=== PATIENT | female | born 1960 | race Caucasian/White ===

== ENCOUNTER 2017-11-05 12:45 | Outpatient (CLI) | payer BC ==
[~2017-11-05 12:45] MED LIST: CITA40TA22 PO; DICL50TA9 PO; ELA50 PO; HYDR10SY7 PO; IRON PO; LEVO125T PO; NORCO5 PO; TOPI100T11 PO
== END 2017-11-05 19:01 | disposition home or self-care (01) ==
LOC: SMA 12:45
PROVIDERS: ATTEND Family Medicine
DX: Z12.31 Encounter for screening mammogram for malignant neoplasm of breast (principal)
CPT/HCPCS: 77067

== ENCOUNTER 2018-11-24 10:48 | Outpatient (CLI) | payer BC ==
[~2018-11-24 10:48] MED LIST changes: +HYDR10SY11 PO; -HYDR10SY7 PO
== END 2018-11-24 18:00 | disposition home or self-care (01) ==
LOC: SMA 10:48
PROVIDERS: ATTEND Physician Assistant Medical
DX: Z12.31 Encounter for screening mammogram for malignant neoplasm of breast (principal)
CPT/HCPCS: 77067

== ENCOUNTER 2020-11-14 10:59 | Outpatient (CLI) | payer BC | END 2020-11-14 20:33 | disposition home or self-care (01) | LOC: SMA 10:59 | PROVIDERS: ATTEND Family Medicine | DX: Z12.31 Encounter for screening mammogram for malignant neoplasm of breast (principal) | CPT/HCPCS: 77067 ==

== ENCOUNTER 2022-11-01 22:20 | Emergency (ER) | payer BC ==
[~2022-11-01] VITALS: Ht 170.2 cm; Wt 61.2 kg
[~2022-11-01 22:20] MED LIST changes: +AMIT50TA4 PO; -ELA50 PO
--- NOTE | 2022-11-01 22:31 | NUR ---
Patient arrived to ED 7 for c/o chest pain since noon. Patient said she took imitrex today about a few hours ago. Patient at bedside and called nurse hotline earlier and was told to bring to er. Patient feels persistent chest pain at the moment. Vital signs stable. Dr. Copeland at bedside to MSE patient. Will continue to monitor.
[2022-11-01] MEDS ORDERED: ASPIRIN 81 MG TAB.CHEW PO ONE (22:45)
[2022-11-01 23:26] LABS: BASOPHILS # (AUTO) 0.1 K/uL (0.0-0.2); BASOPHILS % (AUTO) 0.8 % (0.0-2.0); EOSINOPHILS # (AUTO) 0.4 K/uL (0.0-0.4); EOSINOPHILS % (AUTO) 5.3 % (0.0-4.0); HEMATOCRIT 36.6 % (36-48); HEMOGLOBIN 12.2 g/dL (12.0-16.0); LYMPHOCYTES # (AUTO) 2.5 K/uL (1.0-5.5); LYMPHOCYTES % (AUTO) 36.2 % (20.5-51.5); MEAN CORPUSCULAR HEMOGLOBIN 30 pg (27-31); MEAN CORPUSCULAR HGB CONC 33 % (32-36); MEAN CORPUSCULAR VOLUME 90 fL (79.0-98.0); MONOCYTES # (AUTO) 0.9 K/uL (0.0-1.0); MONOCYTES % (AUTO) 12.2 % (1.7-9.3); NEUTROPHILS # (AUTO) 3.2 K/uL (1.8-7.7); NEUTROPHILS % (AUTO) 45.5 % (40.0-70.0); PLATELET COUNT (AUTO) 205 K/uL (130-430); RED BLOOD CELL COUNT(AUTO) 4.07 MIL/uL (4.2-6.2); RED CELL DISTRIBUTION WIDTH 14.1 % (9.0-15.0)
[2022-11-01 23:28] LABS: ANION GAP 7 (5-15); CALCIUM 8.1 mg/dL (8.4-11.0); CHLORIDE 106 mmol/L (98-107); CREATININE 1.11 mg/dL (0.55-1.30); GFR AFRICAN AMERICAN 65 mL/min (>90); GLUCOSE 113 mg/dL (70-99); UREA NITROGEN, BLOOD 16 mg/dL (8-21)
[2022-11-01 23:35] LABS: ALANINE AMINOTRANSFERASE 23 U/L (12-78); ALBUMIN 3.2 g/dL (3.4-4.8); ASPARTATE AMINOTRANSFERASE 19 U/L (10-37); TOTAL BILIRUBIN 0.2 mg/dL (0.0-1.0)
[2022-11-01 23:42] VITALS: BP_SYST 124
--- NOTE | 2022-11-01 23:48 | NUR ---
Patient resting with at bedside.
[2022-11-02] MEDS ORDERED: KETOROLAC TROMETHAMINE 60 MG/2 ML VIAL IM ONE
[2022-11-02] MEDS ORDERED: IBUP-1969 PO (02:11)
[2022-11-02 02:31] VITALS: BP_SYST 136
--- NOTE | 2022-11-02 02:33 | NUR ---
Patient given written and verbal discharge instructions and verbalizes understanding. ER MD discussed with patient the results and treatment provided. Patient in stable condition. ID arm band removed. Rx of ibuprofen given. Patient educated on pain management and to follow up with PMD. Pain Scale . Opportunity for questions provided and answered. Medication side effect fact sheet provided.
== END 2022-11-02 02:31 | disposition home or self-care (01) ==
LOC: SED 22:20
DX: R07.9 Chest pain, unspecified (principal); Z79.899 Other long term (current) drug therapy
CPT/HCPCS: 99285; 71045; 80053; 85025; 84484; 36415; 93005; 96372; J1885

== ENCOUNTER 2022-12-10 11:20 | Emergency (ER) | payer BC ==
[~2022-12-10] VITALS: Ht 165.1 cm; Wt 68.9 kg
[~2022-12-10 11:20] MED LIST changes: +IBUP-1969 PO
[2022-12-10 12:00] VITALS: BP_SYST 156; PULSE 82; RESP 18; TEMP 98; O2SAT 98
[2022-12-10 13:41] VITALS: BP_SYST 142; PULSE 74; RESP 16; TEMP 97.3; O2SAT 97
== END 2022-12-10 13:42 | disposition home or self-care (01) ==
LOC: SED 11:20
DX: S06.0X0A Concussion without loss of consciousness, initial encounter (principal); Z79.899 Other long term (current) drug therapy; W18.30XA Fall on same level, unspecified, initial encounter; Y93.89 Activity, other specified; Y92.89 Other specified places as the place of occurrence of the external cause; Y99.8 Other external cause status
CPT/HCPCS: 70450-TC; 72125-TC; 76376; 93005; 99284

== ENCOUNTER 2023-03-06 13:49 | Outpatient (CLI) | payer BC | END 2023-03-06 19:28 | disposition home or self-care (01) | LOC: SMA 13:49 | PROVIDERS: ATTEND Physician Assistant Medical | DX: Z12.31 Encounter for screening mammogram for malignant neoplasm of breast (principal) | CPT/HCPCS: 77067 ==

== ENCOUNTER 2023-07-17 08:10 | Outpatient (CLI) | payer BC | END 2023-07-17 20:51 | disposition home or self-care (01) | LOC: SMA 08:10 | PROVIDERS: ATTEND Physician Assistant Medical | DX: N64.59 Other signs and symptoms in breast (principal); N64.4 Mastodynia | CPT/HCPCS: 76642; 77065 ==